=== PATIENT | female | born 1960 | race Caucasian/White ===

== ENCOUNTER 2017-07-17 19:37 | Emergency (ER) | payer BC ==
[~2017-07-17] VITALS: Ht 172.7 cm; Wt 81.0 kg
[~2017-07-17 19:37] MED LIST: BACTRIM,SEPT1 TABLET PO; DILAUDID2 MG PO; KEFLEX500 MG PO; LOVENOX40 MG/0.4 SC; OXYCODONE HCL5 MG PO
[2017-07-17 21:54] LABS: BASOPHIL (%) 0.6 % (0-1); BASOPHIL COUNT 0.1 K/uL (0-0.1); EOSINOPHIL (%) 1.5 % (0-5); EOSINOPHIL COUNT 0.1 K/uL (0-0.3); HEMATOCRIT 38.1 % (36.0-46.0); HEMOGLOBIN 13.2 G/DL (11.9-15.5); IMMATURE GRANULOCYTE (%) 0.2 % (0.0-0.7); LYMPHOCYTE (%) 16.4 % (15-42); LYMPHOCYTE COUNT 1.4 K/uL (1.0-2.8); MCH 30.1 PG (29.0-34.0); MCHC 34.6 G/DL (30.0-36.0); MCV 86.8 FL (83-99); MONOCYTE (%) 11.3 % (3-12); NEUTROPHIL COUNT 6.1 K/uL (1.8-6.4); PLATELET COUNT 250 K/uL (156-360); RBC DIS.WIDTH-CV 12.4 % (11.8-14.6); RBC DIS.WIDTH-SD 39.8 % (39-53); RED BLOOD COUNT 4.39 M/uL (3.80-5.20); WHITE BLOOD COUNT 8.7 K/uL (4.1-10.2)
[2017-07-17 22:05] LABS: CHLORIDE 104 mEq/L (99-109); POTASSIUM 3.4 mEq/L (3.7-5.4); SODIUM 140 mEq/L (136-147)
[2017-07-17 22:06] LABS: GLUCOSE 114 mg/dL (70-99)
[2017-07-17 22:10] LABS: GFR ESTIMATE (CALCULATED) > 59 mL/min/
[2017-07-17 22:11] LABS: UREA NITROGEN (BUN) 9 mg/dL (9-23)
[2017-07-17 23:35] VITALS: BP 165/85
[2017-07-20] MEDS ORDERED: AUGMENTIN500 MG PO (11:12)
== END 2017-07-17 23:38 | disposition home or self-care (01) ==
LOC: EME 19:37
PROVIDERS: Emergency Medicine
DX: S51.851A Open bite of right forearm, initial encounter (principal); W55.01XA Bitten by cat, initial encounter; L03.113 Cellulitis of right upper limb; Z85.038 Personal history of other malignant neoplasm of large intestine
CPT/HCPCS: 80048; 85025; 99281; 99284; J0696